=== PATIENT | female | born 1995 | race Two or more races ===

== ENCOUNTER 2021-04-19 09:50 | Outpatient (CLI) | payer OTHER | END 2021-04-19 10:47 | disposition home or self-care (01) | LOC: PRENATAL 09:50 | PROVIDERS: ATTEND Obstetrics & Gynecology Maternal & Fetal Medicine | DX: O35.0XX1 Maternal care for (suspected) central nervous system malformation in fetus, fetus 1 (principal); O35.3XX1 Maternal care for (suspected) damage to fetus from viral disease in mother, fetus 1; O98.512 Other viral diseases complicating pregnancy, second trimester; Z36.89 Encounter for other specified antenatal screening; Z3A.23 23 weeks gestation of pregnancy ==

== ENCOUNTER 2021-06-21 11:24 | Outpatient (CLI) | payer OTHER | END 2021-06-21 12:24 | disposition home or self-care (01) | LOC: PRENATAL 11:24 | PROVIDERS: ATTEND Obstetrics & Gynecology Maternal & Fetal Medicine | DX: O35.0XX1 Maternal care for (suspected) central nervous system malformation in fetus, fetus 1 (principal); O26.843 Uterine size-date discrepancy, third trimester; Z36.89 Encounter for other specified antenatal screening; Z3A.32 32 weeks gestation of pregnancy ==

== ENCOUNTER 2021-08-03 01:19 | Outpatient (CLI) | payer OTHER ==
[2021-08-03] MEDS ORDERED: PRENATAL TABLE1 EAC1 PO (02:00)
== END 2021-08-03 01:40 | disposition left against medical advice (07) ==
LOC: OBS/DEL 01:19
PROVIDERS: ATTEND Obstetrics & Gynecology
DX: O47.1 False labor at or after 37 completed weeks of gestation (principal); Z3A.38 38 weeks gestation of pregnancy

== ENCOUNTER 2021-08-06 08:28 | Inpatient (IN) | payer OTHER ==
[~2021-08-06] VITALS: Ht 162.6 cm; Wt 96.6 kg
[~2021-08-06 08:28] MED LIST: PRENATAL TABLE1 EAC1 PO
[2021-08-09] MEDS ORDERED: FUSION PLUS CA1 EACH PO (12:22)
== END 2021-08-09 15:16 | disposition home or self-care (01) | DRG 807 ==
LOC: LDR 08:28 → OB/GYN 16:47
PROVIDERS: ADMIT Obstetrics & Gynecology; ATTEND Obstetrics & Gynecology
PROC: 4A1HXCZ Monitoring of Products of Conception, Cardiac Rate, External Approach (ICD-10-PCS; 2021-08-06)
PROC: 3E033VJ Introduction of Other Hormone into Peripheral Vein, Percutaneous Approach (ICD-10-PCS; 2021-08-06)
PROC: 10E0XZZ Delivery of Products of Conception, External Approach (ICD-10-PCS; principal; 2021-08-07)
PROC: 0W8NXZZ Division of Female Perineum, External Approach (ICD-10-PCS; 2021-08-07)
DX: O80 Encounter for full-term uncomplicated delivery (principal); Z37.0 Single live birth; Z3A.39 39 weeks gestation of pregnancy; Z20.822 Contact with and (suspected) exposure to COVID-19